=== PATIENT | male | born 1950 | race Caucasian/White ===

== ENCOUNTER 2023-08-08 21:48 | Emergency (ER) | payer MEDICARE, OTHER ==
[2023-08-08 22:33] LABS: #Basophils 0.05 10x3/uL (0.0-0.2); %Basophils 0.4 % (0.0-1.0); %Eosinophils 1.1 % (0.0-10.0); %Lymphocytes 16.7 % (21.0-51.0); %Monocytes 8.3 % (0.0-10.0); %Neutrophils 73.2 % (42.0-75.0); Hematocrit 37.2 % (42.0-52.0); Hemoglobin 12.2 g/dL (14.0-18.0); Mean Corpuscular HGB CONC 32.8 g/dL (32.0-36.0); Mean Corpuscular Hemoglobin 29.9 pg (27.0-31.0); Mean Corpuscular Volume 91.2 fL (78.0-98.0); Platelet Count 249 10x3/uL (130-400); RBC Distribution Width 13.2 % (11.5-14.5); Red Blood Cell (RBC) Count 4.08 mill/uL (4.70-6.10)
[2023-08-08 22:52] LABS: ALT (SGPT) 15 U/L (8-55); AST (SGOT) 18 U/L (5-34); Albumin 3.7 g/dL (3.4-4.8); Alkaline Phosphatase 91 U/L (40-110); Anion Gap 15 mmol/L (10-20); BUN (Urea Nitrogen) 39 mg/dL (8.4-25.7); Bilirubin, Total 0.4 mg/dL (0.2-1.2); Calc. Creatinine Clearance 0 mL/min (70-130); Calcium 9.3 mg/dL (7.8-10.44); Carbon Dioxide 22 mmol/L (23-31); Chloride 103 mmol/L (98-107); Estimated GFR 34; Globulin 3.1 g/dL (2.4-3.5); Glucose 94 mg/dL (80-115); Potassium 4.2 mmol/L (3.5-5.1); Protein, Total 6.8 g/dL (5.8-8.1); Sodium 136 mmol/L (136-145)
[2023-08-08 22:56] LABS: Troponin I Less than 0.010 ng/mL (< 0.028)
== END 2023-08-09 01:44 | disposition home or self-care (01) ==
LOC: ERS 21:48
DX: E86.0 Dehydration (principal); T67.5XXA Heat exhaustion, unspecified, initial encounter; R55 Syncope and collapse; E11.9 Type 2 diabetes mellitus without complications; I10 Essential (primary) hypertension
CPT/HCPCS: 36415; 36416; 71045; 80053; 84484; 85025; 93005